=== PATIENT | female | born 1945 | race Caucasian/White ===

== ENCOUNTER → 2017-01-03 | Outpatient (CLI) | payer MEDICARE, OTHER ==
[~2017-01-03] MED LIST: ALBUTEROL0.83 MG/ML; ALBUTEROL17 GM; ALBUTEROL17 GM INH; ALLEGRA180 MG PO; AMLODIPINE BESYL5 MG PO; ASPIRIN81 M1; CIPRO500 MG/5 M PO; COMBIVENT14.7 GM INH; DOXYCYCLINE150 MG PO; HY; KCL; KCL PO; LASIX20 MG PO; LEVOCETIRIZINE D5 MG PO; LISINOPRIL-HCTZ1 T15 PO; MOBIC PO; MYSOLINE50 M1 PO; NASONEX17 GM; NORVASC10 MG PO; OMEPRAZOLE40 MG PO; PATIENT'S PHARMACY; PHENERGAN PO; PHENERGAN25 MG PO; PREDNISONE; PREDNISONE10 MG PO; PRILOSEC PO; PRINIVIL20 M1 PO; PROAIR HFA8.5 GM INH; SIMVASTATIN20 MG PO; SINGULAIR PO; SYMBICORT; SYMBICORT INH; TYLOX1 CAP 5/50 DOB; VICODIN ES 7.51 EACH PO; VOLTAREN75 MG PO; ZESTORETIC 20-1 EAC2 PO; ZESTORETIC1 TAB PO; ZITHROMAX500 MG PO; [UNRECOGNIZED DRUG - OTHER]
--- NOTE | ~2017-01-03 | US77 ---
[facility] A Service of [facility] RADIOLOGY TEXT RESULTS PATIENT: MILTON MERRILL LOCATION: SGUS : 43 UNIT #: [id number] AGE: [address]: Anabelle Santillan MD SEX: F ORDER DR: [id number] [place] [id number] O MR#: [id number] Acc #: [id number] NAME: MILTON MERRILL : 1945 SEX: F STUDY DATE/TIME: 01/03/2017 13:34 UNIT: [facility] ROOM: STUDY DESCRIPTION: US Kidney Bilateral Complete Attending Physician: Anabelle Santillan M.D. Referring Physician: Anabelle Santillan M.D. Ordering Physician: Anabelle Santillan M.D. Primary Care Physician: Anabelle Santillan M.D. MEDICAL IMAGING REPORT This report is preliminary unless electronic signature is present. EXAM Renal ultrasound INDICATIONS Chronic kidney disease stage 3. Creatinine 1.34 BUN 27. PROCEDURE Cuellar-scale and Doppler imaging of the kidneys and bladder. COMPARISON None FINDINGS Right kidney measures 8.2 cm in length. There is a 1.6 cm cyst in the upper pole. There is a 2.2 cm cyst in the upper to mid right kidney. Right renal cortical thickness 9 mm. Left kidney measures 9.2 cm. Cortical thickness 6 mm. No hydronephrosis. Unremarkable bladder. Bladder volume is 7.4 mL. IMPRESSION 1. Right renal cyst. 2. Bilateral renal cortical thinning in keeping with changes of chronic renal disease. 1. Dictated by... Gentry Barclay M.D. THIS IS AN ELECTRONICALLY VERIFIED REPORT Gentry Barclay M.D. at 01/05/2017 7:15 AM EED/to [facility] A Service of [facility] RADIOLOGY TEXT RESULTS PATIENT: MILTON MERRILL LOCATION: [facility] : 43 UNIT #: [id number] AGE: [address]: Anabelle Santillan MD SEX: F ORDER DR: TD: 01/03/2017 20:56 JOB #: [id number] MEDICAL IMAGING REPORT Page 1 of 1
== END | disposition home or self-care (01) ==
LOC: SGUS 13:19
DX: N28.9 Disorder of kidney and ureter, unspecified (principal); N28.1 Cyst of kidney, acquired
CPT/HCPCS: 76775

== ENCOUNTER 2017-03-06 02:52 | Observation (INO) | payer MEDICARE, OTHER ==
--- NOTE | ~2017-03-06 | DS ---
Unit #: [id number] #: [id number] Patient: MILTON MERRILL [id number] [address] [address] [id number] I MR#: [id number] NAME: MILTON MERRILL ROOM: 306 Age: 71 Sex: F Admission Date: 03/06/2017 : 1945 Discharge Date: Attending Physician: Radha Abarca M.D. Primary Care Physician: Anabelle Santillan M.D. DISCHARGE SUMMARY DISCHARGE DIAGNOSES 1. Right chest and back pain, atypical. 2. Hyponatremia, most likely secondary to hydrochlorothiazide. 3. Hypertension. 4. Hyperlipidemia. 5. Chronic obstructive pulmonary disease. 6. Tremor. 7. Chronic kidney disease, stage 1. 8. Anemia, chronic, like iron deficiency. CONSULTATION None. PROCEDURE None. DIAGNOSTIC STUDIES LABORATORY: Sodium 136, potassium 4.3, creatinine 0.9. WBC 5.8, hemoglobin 10.8. Troponins negative. Lactic acid 1.4. IMAGING: Chest x-ray: Negative. CT angio chest shows underlying emphysematous changes. No evidence of PE. ALLERGIES Nifedipine, chlordiazepoxide, hydrocodone, acetaminophen, pneumococcal vaccine. DISCHARGE MEDICATIONS 1. Albuterol one puff inhalation q.4 p.r.n. shortness of breath. 2. Symbicort 160 mcg inhalation one puff b.i.d. 3. Primidone 50 mg at bedtime. 4. Norvasc 10 daily. 5. Lasix 20 daily. 6. Lisinopril 20 p.o. b.i.d. 7. Singulair 10 daily. 8. Omeprazole 20 p.o. b.i.d. 9. Potassium 20 mEq p.o. daily. 10. Levocetirizine 5 mg daily. HOSPITALIZATION COURSE A 71 year old admitted because of right chest and back pain. Chest and back pain, secondary to atypical. Troponins negative. EKG: Unit #: [id number] #: [id number] Patient: MILTON MERRILL Normal sinus rhythm. A CT angio chest did not show any PE or dissection. Currently, pain better. Follow with PCP. Hyponatremia: Likely secondary to hydrochlorothiazide which has been discontinued. Currently, getting better. Sodium 133. History of hypertension: Currently stable. DISPOSITION Discharge home. FOLLOWUP Follow with family physician in one week time. Dictated by... Robel Burch TD: 03/07/2017 11:46 JOB #: [id number] DISCHARGE SUMMARY Page 1 of 1 X Radha Abarca MD X DISCHARGE SUMMARY
--- NOTE | ~2017-03-06 | EKG ---
PATIENT: MILTON MERRILL UNIT #: [id number] Ventricular Rate: 85 BPM Atrial Rate: 85 BPM P-R Interval: 136 ms QRS Duration: 74 ms Q-T Interval: 370 ms QTC Calculation(Bezet): 440 ms P [place]: 36 degrees Calculated R [place]: 7 degrees Calculated T [place]: 46 degrees Diagnosis Line: Normal sinus rhythm Diagnosis Line: Low voltage QRS Diagnosis Line: Borderline ECG Diagnosis Line: When compared with ECG of 01-MAY-2011 12:06, Diagnosis Line: No significant change was found Diagnosis Line: Confirmed by GRANT PHELAN MD ([id number]) on Diagnosis Line: 03/07/2017 8:47:00 AM INTERPRETING MD: TAPAN FIERRO
--- NOTE | ~2017-03-06 | CR72 ---
[facility] A Service of [facility] RADIOLOGY TEXT RESULTS PATIENT: MILTON MERRILL LOCATION: [facility] 306-01 : 43 UNIT #: [id number] AGE: [address]: Laverne Paz MD SEX: F ORDER DR: [id number] [facility] [address] [place], [place] [address] [id number] I MR#: [id number] Acc #: [id number] NAME: MILTON MERRILL : 1945 SEX: F STUDY DATE/TIME: 03/06/2017 4:43 UNIT: [address] ROOM: [facility] STUDY DESCRIPTION: CR Chest Single View Portable Attending Physician: Laverne Paz M.D. Ordering Physician: Sahara Albarran M.D. Primary Care Physician: Anabelle Santillan M.D. MEDICAL IMAGING REPORT This report is preliminary unless electronic signature is present EXAM Single view of the chest HISTORY Chest pain for 2 days. Cough. FINDINGS Single portable AP view of the chest is compared to 05/10/2011. The heart and mediastinal contours are normal. The lungs are clear. IMPRESSION No acute cardiopulmonary findings. Dictated by... Giovany You M.D. THIS IS AN ELECTRONICALLY VERIFIED REPORT Giovany You M.D. at 03/06/2017 9:07 PM EASTON/natalya TD: 03/06/2017 08:04 JOB #: [id number] MEDICAL IMAGING REPORT Page 1 of 1 COPY
--- NOTE | ~2017-03-06 | CT16 ---
[facility] A Service of [facility] RADIOLOGY TEXT RESULTS PATIENT: MILTON MERRILL LOCATION: [facility] 306-01 : 43 UNIT #: [id number] AGE: [address]: Radha Abarca MD SEX: F ORDER DR: [id number] [facility] [address]. [place], [place] [address] [id number] I MR#: [id number] Acc #: [id number] NAME: MILTON MERRILL : 1945 SEX: F STUDY DATE/TIME: 03/06/2017 13:22 UNIT: [address] ROOM: [facility] STUDY DESCRIPTION: CT Angio Chest for PE Attending Physician: Laverne Paz M.D. Ordering Physician: Laverne Paz M.D. Primary Care Physician: Anabelle Santillan M.D. MEDICAL IMAGING REPORT This report is preliminary unless electronic signature is present EXAM CT of the chest with IV contrast, CT angiography of the aorta and pulmonary arteries. DATE OF EXAMINATION 03/06/2017 COMPARISON STUDIES Dated 02/04/10. HISTORY SUPPLIED Hyponatremia, lung and chest pain for 2 days with cough. TECHNIQUE This CT exam was performed with one or more of the following radiation dose reduction techniques: automatic exposure control, adjustment of mA and/or kV according to patient size, and iterative reconstruction. FINDINGS Scans through the lungs show underlying emphysematous lung disease. No acute infiltrates are identified. No discrete pulmonary nodules or masses are identified. Scans through the mediastinum shows atherosclerotic disease in the aorta. No masses or lymphadenopathy identified. Scans of the upper abdomen show postop changes of prior cholecystectomy. Aorta appears normal with no evidence of aneurysm or dissection. There is diffuse atherosclerotic disease. Pulmonary arteries appear unremarkable. There are no significant pulmonary artery filling defects. There is no evidence of pleural or pericardial fluid. Prominence of the central pulmonary arteries is present. CONCLUSIONS 1. Underlying emphysematous lung disease. Mild prominence of the [facility] A Service of [facility] RADIOLOGY TEXT RESULTS PATIENT: MILTON MERRILL LOCATION: [facility] 306-01 : 43 UNIT #: [id number] AGE: [address]: Radha Abarca MD SEX: F ORDER DR: central pulmonary arteries which may reflect some degree of pulmonary hypertension. 2. No evidence of pulmonary embolism. No evidence of aortic aneurysm or dissection. The patient does have atherosclerotic disease in the aorta. 3. Mild central prominence of pulmonary arteries suggesting underlying hypertension. No evidence of embolus. Dictated by... Rafita Kang M.D. THIS IS AN ELECTRONICALLY VERIFIED REPORT Rafita Kang M.D. at 03/07/2017 3:17 PM MAILE/nino TD: 03/06/2017 20:18 JOB #: [id number] MEDICAL IMAGING REPORT Page 1 of 1 COPY
--- NOTE | ~2017-03-06 | HP ---
Unit #: [id number] #: [id number] Patient: MILTON MERRILL [id number] [address] [place], [place] [address] [id number] I MR#: [id number] NAME: MILTON MERRILL ROOM: 38979 Age: 71 Sex: F Admission Date: 03/06/2017 : 1945 Attending Physician: Laverne Paz M.D. Primary Care Physician: Anabelle Santillan M.D. HISTORY AND PHYSICAL CHIEF COMPLAINT Shortness of breath. HISTORY OF PRESENT ILLNESS The patient is a 71-year-old female with past medical history of hypertension, hyperlipidemia, COPD, tremor who presented to the emergency department for evaluation of the above. The patient states that she has had about a two day history of increasing shortness of breath and cough. She denies any fever. She states that she has had "lung pain." The pain is actually in the right upper back. She also has a sensation of "heavy chest." She states that the pain has been intermittent in nature. It is exacerbated by movement and breathing. She denies any alleviating factors. She has also had decreased appetite but no vomiting. She states that she has loose stool for months. She reports five bouts of nonbloody diarrhea within the past 24 hours. She denies any abdominal pain. No change in her weight. There has been no recent change in medications. In the emergency department, chest x-ray was done and showed nothing acute. Laboratory is notable for sodium of 127. She is being admitted to [facility] for evaluation and further treatment. She was given 30 mg of Toradol in the emergency department. PAST MEDICAL HISTORY 1. Admission to [facility], May 08 through May 11, 2011, for symptomatic cholelithiasis. She underwent cholecystectomy during that admission. 2. Chronic kidney disease, stage 3. 3. Hypertension. 4. Hyperlipidemia. 5. COPD. 6. Tremor. PAST SURGICAL HISTORY 1. Cholecystectomy. 2. Foot surgery. 3. Knee surgery. 4. Partial thyroidectomy. 5. Tubal ligation. 6. Cataract surgery. SOCIAL HISTORY The patient lives alone. She quit smoking 10 years ago. She has a cane Unit #: [id number] #: [id number] Patient: MILTON MERRILL and a walker. CODE STATUS Her code status is a full code. FAMILY HISTORY Notable for her mother having esophageal cancer as well as colon cancer. ALLERGIES Nifedipine, chlordiazepoxide, hydrocodone, acetaminophen, pneumococcal vaccine. HOME MEDICATIONS 1. Levocetirizine 5 mg daily. 2. Potassium 20 mEq daily. 3. Zestoretic 20/25 twice daily. 4. Prilosec 20 mg twice daily. 5. Norvasc 10 mg daily. 6. Primidone 50 mg at bedtime. 7. Singulair 10 mg daily. 8. Lasix 20 mg daily. 9. Symbicort 160/4.5 inhaled twice daily. 10. Ventolin p.r.n. REVIEW OF SYSTEMS A complete review of systems is negative except as indicated in the HPI. DIAGNOSTIC STUDIES LABORATORY: Complete blood count notable for hemoglobin and hematocrit of 11.6 and 34.7 respectively. Platelets are 443,000. Urinalysis notable for 1+ leukocyte esterase. Lactic acid is 1.4. Comprehensive metabolic panel notable for sodium of 127, chloride 93, glucose 114. Lipase is 38. Troponin is less than 0.03. CK is 130. IMAGING: Chest x-ray shows nothing acute. CARDIOVASCULAR: EKG shows normal sinus rhythm with rate of 85 beats per minute. PHYSICAL EXAMINATION VITAL SIGNS: Temperature is 97.5, pulse 94, respirations 20, blood pressure 157/74, oxygen saturation is 98% on room air. GENERAL: The patient is a female who is awake and alert in no acute distress. HEENT: The head is atraumatic. Mucous membranes are moist. NECK: Supple. Trachea is midline. CARDIOVASCULAR: Regular rate and rhythm. LUNGS: Clear to auscultation bilaterally with no increased work of breathing. ABDOMEN: Soft, nontender with bowel sounds present in all four quadrants. EXTREMITIES: Nontender with no pedal edema. NEUROLOGIC: The patient is awake and alert. She follows commands. PSYCHIATRIC: Mood and affect are normal. The patient is cooperative. SKIN: Skin of examined areas is warm and dry. ASSESSMENT The patient is a 71-year-old female with: 1. Right chest and back pain. Unit #: [id number] #: [id number] Patient: MILTON MERRILL 2. Hyponatremia: The patient's sodium has been normal in the past. It is 127 today. She could be somewhat volume depleted as she has had decreased appetite and chronic diarrhea. She is also on hydrochlorothiazide which could be contributing. 3. Hypertension. 4. Hyperlipidemia. 5. Chronic obstructive pulmonary disease. 6. Tremor. 7. Chronic kidney disease. 8. Former smoker. PLAN 1. Admit for observation to intermediate level. 2. Healthy heart diet. 3. Normal saline at 75 mL an hour. 4. Urine sodium and osmolality. 5. Serum osmolality. 6. Hold hydrochlorothiazide. 7. CT of the chest, pulmonary embolus protocol. 8. Supplemental oxygen. 9. Serial cardiac enzymes. 10. Repeat labs in the morning. 11. Additional workup and consultants based on above. Dictated by Robel Caldera/yara TD: 03/06/2017 11:56 JOB #: [id number] HISTORY AND PHYSICAL Page 1 of 1 X Laverne Paz MD X HISTORY AND PHYSICAL
[~2017-03-06 02:52] MED LIST changes: -ALBUTEROL17 GM INH; -LEVOCETIRIZINE D5 MG PO; -MYSOLINE50 M1 PO; -NORVASC10 MG PO; -PATIENT'S PHARMACY; -PRILOSEC PO; -PRINIVIL20 M1 PO; -SYMBICORT INH; -ZESTORETIC 20-1 EAC2 PO
[2017-03-06 06:34] LABS: URINE SOURCE CLEAN CATCH
[2017-03-06 06:38] LABS: BASOPHIL# 0.1 X10e3 (0-0.3); BASOPHIL% 0.6 % (0-2.5); EOSINOPHIL% 0.3 % (0.0-7.0); HEMATOCRIT 34.7 % (35.0-45.0); HEMOGLOBIN 11.6 gm/dL (12.0-16.0); LYMPHOCYTE# 1.5 X10e3 (1.0-3.5); LYMPHOCYTE% 16.3 % (17.0-45.0); MEAN CELL VOLUME 91.9 FL (83-96); MEAN CORPUSCULAR HEMOGLOBIN 30.7 PG (28-34); MEAN CORPUSCULAR HGB CONC 33.4 g/dL (30-36); MEAN PLATELET VOLUME 7.7 FL (6.5-11.5); MONOCYTE% 10.7 % (3.0-12.0); NEUTROPHIL# 6.5 X10e3 (1.5-7.1); NEUTROPHIL% 72.1 % (40-75); PLATELET COUNT 443 X10e3 (140-420); RED BLOOD COUNT 3.78 X10e (3.90-5.30); RED CELL DISTRIBUTION WIDTH 14.3 % (11.0-15.5)
[2017-03-06 06:40] LABS: URINE APPEARANCE CLEAR; URINE BILIRUBIN NEG (NEG); URINE BLOOD NEG (NEG); URINE COLOR YELLOW; URINE GLUCOSE NEG (NEG); URINE KETONE NEG (NEG); URINE LEUKOCYTE ESTERASE 1+ (NEG); URINE NITRATE NEG (NEG); URINE PH 6.5 (5-8); URINE PROTEIN NEG (NEG); URINE SPECIFIC GRAVITY 1.005 (1.003-1.035); URINE UROBILINOGEN 0.2 MG/DL (NEG)
[2017-03-06 06:41] LABS: DIFF IND NO
[2017-03-06 06:42] LABS: URBCS1 AUWI 0-2 /[HPF] (0-2); URINE BACTERIA AUWI NEG (NEGATIVE); URINE SQUAMOUS EPITHELIAL CELL NONE SEEN /[HPF]
[2017-03-06 06:48] LABS: CULTURE INDICATED? NO
[2017-03-06 07:18] LABS: BILIRUBIN, DIRECT 0.1 mg/dL (0.0-0.2); BILIRUBIN,INDIRECT 0.4 mg/dL (0.0-0.9); BILIRUBIN,TOTAL 0.5 mg/dL (0.2-2.0); BUN/CREATININE RATIO 23.33; CALCIUM SERUM 9.5 mg/dL (8.4-10.2); CREATININE SERUM 0.9 mg/dL (0.6-1.4); GLOM FILT RATE Estimated 63.5 mL/min (>60); POTASSIUM 3.7 mmol/L (3.5-5.1)
[2017-03-06 09:58] LABS: %MB 2.8 % (0.0-4.0); MB 3.6 ng/ml
[2017-03-06] MEDS ORDERED: LEVOCETIRIZINE D5 MG PO (10:54)
[2017-03-06] MEDS ORDERED: KCL PO (10:56)
[2017-03-06] MEDS ORDERED: ZESTORETIC 20-1 EAC2 PO (10:57)
[2017-03-06] MEDS ORDERED: PRILOSEC PO (10:57)
[2017-03-06] MEDS ORDERED: SYMBICORT INH (10:58)
[2017-03-06] MEDS ORDERED: MYSOLINE50 M1 PO (10:58)
[2017-03-06] MEDS ORDERED: SINGULAIR PO (10:58)
[2017-03-06] MEDS ORDERED: NORVASC10 MG PO (10:58)
[2017-03-06] MEDS ORDERED: LASIX20 MG PO (10:58)
[2017-03-06] MEDS ORDERED: ALBUTEROL17 GM INH (10:59)
[2017-03-06] MEDS ORDERED: PATIENT'S PHARMACY (11:00)
[2017-03-06 15:38] LABS: %MB 2.4 % (0.0-4.0); MB 3.2 ng/ml
[2017-03-06 18:20] LABS: SODIUM URINE RANDOM 35 mmol/L
[2017-03-06 18:29] LABS: OSMOLALITY,URINE 276 mOsmo/kg (250-900)
[2017-03-07 05:18] LABS: HEMATOCRIT 32.3 % (35.0-45.0); HEMOGLOBIN 10.8 gm/dL (12.0-16.0); MEAN CORPUSCULAR HEMOGLOBIN 30.6 PG (28-34); MEAN CORPUSCULAR HGB CONC 33.3 g/dL (30-36); MEAN PLATELET VOLUME 7.7 FL (6.5-11.5); RED BLOOD COUNT 3.51 X10e (3.90-5.30); RED CELL DISTRIBUTION WIDTH 14.8 % (11.0-15.5); WHITE BLOOD COUNT 5.8 X10e3 (4.0-10.5)
[2017-03-07 06:06] LABS: ALBUMIN SERUM 3.4 g/dL (3.5-5.0); BILIRUBIN,TOTAL 0.3 mg/dL (0.2-2.0); BUN/CREATININE RATIO 22.22; CALCIUM SERUM 9.5 mg/dL (8.4-10.2); CREATININE SERUM 0.9 mg/dL (0.6-1.4); GLOM FILT RATE Estimated 63.5 mL/min (>60); POTASSIUM 4.3 mmol/L (3.5-5.1); PROTEIN TOTAL SERUM 5.6 g/dL (6.0-8.3)
[2017-03-07] MEDS ORDERED: LASIX20 MG PO (10:18)
[2017-03-07] MEDS ORDERED: PRINIVIL20 M1 PO (10:24)
== END 2017-03-07 17:17 | disposition home or self-care (01) ==
LOC: CED 02:52 → CEDOF 08:18 → CED 08:18 → C3A PCU 08:18 → CED 08:54 → CEDOF 08:54 → C3A PCU 15:46 → CEDOF 15:46 → C3A PCU 03-07 06:45
PROVIDERS: Emergency Medicine; Family Medicine
DX: R07.89 Other chest pain (principal); M54.9 Dorsalgia, unspecified; E87.1 Hypo-osmolality and hyponatremia; I70.0 Atherosclerosis of aorta; I10 Essential (primary) hypertension; E78.5 Hyperlipidemia, unspecified; J44.9 Chronic obstructive pulmonary disease, unspecified; R25.1 Tremor, unspecified; I12.9 Hypertensive chronic kidney disease with stage 1 through stage 4 chronic kidney disease, or unspecified chronic kidney disease; N18.3 Chronic kidney disease, stage 3 (moderate); D63.1 Anemia in chronic kidney disease; Z87.891 Personal history of nicotine dependence; Z79.899 Other long term (current) drug therapy; Z80.0 Family history of malignant neoplasm of digestive organs; Z90.49 Acquired absence of other specified parts of digestive tract; Z98.51 Tubal ligation status; Z98.890 Other specified postprocedural states; Z88.7 Allergy status to serum and vaccine; Z88.5 Allergy status to narcotic agent; Z88.8 Allergy status to other drugs, medicaments and biological substances
CPT/HCPCS: 71010; 71275; 80048; 80053; 80076; 81003; 82550; 82553; 83605; 83690; 83930; 83935; 84300; 84484; 85025; 85027; 87040; 93005; 94640; 94664; 94760; 96374; 99285; G0378; J1885; Q9967